=== PATIENT | female | born 1970 | race Caucasian/White ===

== ENCOUNTER → 2017-05-21 | Outpatient (REF) ==
[~2017-05-21] MED LIST: LANTUS SOLOS100 U/ML SC; LANTUS100 U/ML SQ; NO HOME MEDICATIONS; NOVOLOG 100U100 U/M1 IV; NOVOLOG FLEX100 U/ML SC; PRENATAL1 TA1 PO
== END ==
LOC: ZLAB.WCH 16:03
DX: Z01.89 Encounter for other specified special examinations (principal)

== ENCOUNTER → 2018-06-04 | Outpatient (CLI) | payer OTHER | LOC: COL.RAD 14:27 | DX: M48.02 Spinal stenosis, cervical region (principal); M50.21 Other cervical disc displacement, high cervical region; M25.78 Osteophyte, vertebrae; M50.323 Other cervical disc degeneration at C6-C7 level ==

== ENCOUNTER → 2018-10-16 | Outpatient (CLI) | payer OTHER | LOC: MHCPAIN 08:10 | DX: G89.29 Other chronic pain (principal); M54.12 Radiculopathy, cervical region; M47.812 Spondylosis without myelopathy or radiculopathy, cervical region | CPT/HCPCS: G0463 ==

== ENCOUNTER → 2018-10-24 | Outpatient (CLI) | payer OTHER | LOC: MHCPAIN 08:11 | DX: M47.812 Spondylosis without myelopathy or radiculopathy, cervical region (principal); M54.12 Radiculopathy, cervical region | CPT/HCPCS: J1100; Q9967 ==

== ENCOUNTER → 2018-11-04 | Outpatient (CLI) | payer OTHER | LOC: MHCPAIN 09:37 | DX: G89.29 Other chronic pain (principal); M54.12 Radiculopathy, cervical region; M47.812 Spondylosis without myelopathy or radiculopathy, cervical region | CPT/HCPCS: G0463 ==